=== PATIENT | male | born 1995 | race African-American/Black ===

== ENCOUNTER 2022-04-07 19:51 | Emergency (ER) | payer OTHER ==
[~2022-04-07] VITALS: Ht 188 cm; Wt 86.2 kg
[2022-04-07 20:14] VITALS: BP 125/86
[2022-04-07] MEDS ORDERED: IBUPROFEN 600 MG TABLET PO ONE (20:30)
[2022-04-07] MEDS ORDERED: IBUPROFEN 600 MG TABLET ONE (20:36)
[2022-04-07] MEDS ORDERED: IBUP-1955 PO (21:12)
--- NOTE | 2022-04-07 21:30 | NUR ---
Patient discharged to home in stable condition. Written and verbal after care instructions given. Patient verbalizes understanding of instruction. Pt ambulatory with a steady gait
== END 2022-04-07 21:31 | disposition home or self-care (01) ==
LOC: ER 19:53
DX: S63.502A Unspecified sprain of left wrist, initial encounter (principal); S60.512A Abrasion of left hand, initial encounter; W18.30XA Fall on same level, unspecified, initial encounter; Y93.89 Activity, other specified; Y92.89 Other specified places as the place of occurrence of the external cause; Y99.8 Other external cause status
CPT/HCPCS: 73110